=== PATIENT | male | born 1965 | race African-American/Black ===

== ENCOUNTER 2019-09-13 18:03 | Inpatient (IN) ==
[2019-09-13 21:07] LABS: Basophils % 0.2 % (0.0-0.8); Hematocrit 53.1 VOL% (42.0-52.0); Immature Granulocytes % 0.3 %; Immature Granulocytes Absolute 0.05 #; Lymphocytes # 1.6 10*3/uL (1.4-4.0); Lymphocytes % 11.1 % (21.2-54.2); Mean Corpuscular HGB Conc 33.9 GM/DL (32-36); Mean Corpuscular Volume 95.5 FL (87-102); Mean Platelet Volume 8.3 FL (9.6-12.0); Neutrophils % 78.4 % (38.7-73.9); Platelet Count 241 T/CUMM (130-400); Red Blood Count 5.56 MC/CUMM (3.8-5.5); Red Cell Distribution Width 12.6 % (9.3-17.3); White Blood Count 14.3 T/CUMM (4-12)
[2019-09-13] MEDS ORDERED: ACETAMINOPHEN 325 MG TABLET PO PRN (21:43)
[2019-09-13] MEDS ORDERED: ONDANSETRON 4 MG/2 ML VIAL IV PRN (21:43)
[2019-09-13] MEDS ORDERED: DOCUSATE SODIUM 100 MG CAPSULE PO PRN (21:43)
[2019-09-13] MEDS ORDERED: AZITHROMYCIN INJ 500 MG in SODIUM CHLORIDE 0.9% 250 ML IV SCH (22:00)
[2019-09-13 22:12] LABS: Alanine Aminotransferase 20 U/L (16-61); Albumin 3.6 G/DL (3.4-5.0); Alkaline Phosphatase 91 U/L (45-117); Aspartate Amino Transferase 21 U/L (0-37); Bilirubin,Total < 0.39 MG/DL (0.2-1.0); Blood Urea Nitrogen 77 MG/DL (7-18); Calcium 9.1 MG/DL (8.5-10.1); Estimated Glom Filtration Rate 6 ML/MIN; Glucose 97 MG/DL (74-106); Osmolality,Calculated 269.8 MOS/KG (273-304); Total Protein 8.2 G/DL (6.4-8.3)
[2019-09-13] MEDS ORDERED: NICOTINE 21 MG/24 HR PATCH TRANSDERM PRN (22:32)
[2019-09-13] MEDS ORDERED: LORazepam 2 MG/1 ML VIAL IV PRN ×2 (22:32)
[2019-09-13] MEDS: SODIUM CHLORIDE 0.9% 1,000 ML IV SCH (22:53)
[2019-09-13] MEDS: cefTRIAXone 1,000 MG in SYRINGE 1 EACH IV SCH (23:16)
[2019-09-13 23:46] LABS: Ferritin 510.8 ng/ml (26-388)
[2019-09-14 03:09] LABS: Calcium 8.4 MG/DL (8.5-10.1); Osmolality,Calculated 272.6 MOS/KG (273-304); Risk Ratio 2.7; Thyroid Stimulating Hormone 0.039 uIU/ml (0.358-3.74)
[2019-09-14] MEDS: SODIUM CHLORIDE 0.9% 1,000 ML IV SCH ×3 (05:16→17:50)
[2019-09-14 05:43] LABS: Basophils % 0.2 % (0.0-0.8); Eosinophils # 0.1 10*3/uL (0.0-0.87); Hematocrit 46.8 VOL% (42.0-52.0); Hemoglobin 16.2 GM/DL (14.0-18.0); Immature Granulocytes % 0.5 %; Immature Granulocytes Absolute 0.06 #; Lymphocytes # 1.4 10*3/uL (1.4-4.0); Lymphocytes % 11.1 % (21.2-54.2); Mean Corpuscular HGB Conc 34.6 GM/DL (32-36); Mean Corpuscular Volume 94.4 FL (87-102); Mean Platelet Volume 8.4 FL (9.6-12.0); Neutrophils % 76.2 % (38.7-73.9); Platelet Count 226 T/CUMM (130-400); Red Blood Count 4.96 MC/CUMM (3.8-5.5); Red Cell Distribution Width 12.4 % (9.3-17.3); White Blood Count 12.4 T/CUMM (4-12)
[2019-09-14 06:12] LABS: Platelet Estimate Adequate
[2019-09-14] MEDS ORDERED: ALUMINUM/MAGNES/SIMETH MAX STR 30 ML UDCUP PO PRN (14:12)
[2019-09-14] MEDS: HEPARIN 5,000 UNIT/1 ML VIAL SUBCUT SCH (16:32)
[2019-09-14] MEDS: cefTRIAXone 1,000 MG in SYRINGE 1 EACH IV SCH (21:25)
[2019-09-15] MEDS: SODIUM CHLORIDE 0.9% 1,000 ML IV SCH ×4 (00:39→22:40)
[2019-09-15] MEDS: HEPARIN 5,000 UNIT/1 ML VIAL SUBCUT SCH ×3 (00:40→16:23)
[2019-09-15 06:16] LABS: Basophils # 0.1 10*3/uL (0.0-0.2); Basophils % 0.5 % (0.0-0.8); Eosinophils % 0.1 % (0.00-10.9); Hematocrit 43.9 VOL% (42.0-52.0); Hemoglobin 14.4 GM/DL (14.0-18.0); Immature Granulocytes % 0.3 %; Immature Granulocytes Absolute 0.03 #; Lymphocytes # 1.7 10*3/uL (1.4-4.0); Lymphocytes % 18.2 % (21.2-54.2); Mean Corpuscular HGB Conc 32.8 GM/DL (32-36); Mean Corpuscular Volume 97.3 FL (87-102); Mean Platelet Volume 8.6 FL (9.6-12.0); Monocytes % 10.7 % (1.7-12.7); Neutrophils % 70.2 % (38.7-73.9); Platelet Count 211 T/CUMM (130-400); Red Blood Count 4.51 MC/CUMM (3.8-5.5); Red Cell Distribution Width 12.2 % (9.3-17.3); White Blood Count 9.2 T/CUMM (4-12)
[2019-09-15 06:39] LABS: Calcium 8.4 MG/DL (8.5-10.1); Osmolality,Calculated 280.2 MOS/KG (273-304)
[2019-09-15 06:49] LABS: Free T4 (Free Thyroxine) 1.85 NG/DL (0.76-1.46)
[2019-09-15] MEDS: PANTOPRAZOLE 40 MG TABLET PO SCH (09:13)
[2019-09-15] MEDS: CYPROHEPTADINE 4 MG TABLET PO SCH ×2 (14:43→20:54)
[2019-09-15] MEDS: cefTRIAXone 1,000 MG in SYRINGE 1 EACH IV SCH (20:54)
[2019-09-15] MEDS ORDERED: TAMSULOSIN 0.4 MG CAPSULE PO SCH (21:00)
[2019-09-16] MEDS: HEPARIN 5,000 UNIT/1 ML VIAL SUBCUT SCH ×3 (01:36→16:26)
[2019-09-16 04:16] LABS: Basophils # 0.1 10*3/uL (0.0-0.2); Basophils % 0.8 % (0.0-0.8); Eosinophils # 0.1 10*3/uL (0.0-0.87); Eosinophils % 1.2 % (0.00-10.9); Hematocrit 42.2 VOL% (42.0-52.0); Hemoglobin 13.8 GM/DL (14.0-18.0); Immature Granulocytes % 0.3 %; Immature Granulocytes Absolute 0.03 #; Lymphocytes # 2.9 10*3/uL (1.4-4.0); Lymphocytes % 30.8 % (21.2-54.2); Mean Corpuscular HGB Conc 32.7 GM/DL (32-36); Mean Corpuscular Volume 97.7 FL (87-102); Mean Platelet Volume 8.9 FL (9.6-12.0); Monocytes % 10.2 % (1.7-12.7); Neutrophils % 56.7 % (38.7-73.9); Platelet Count 198 T/CUMM (130-400); Red Blood Count 4.32 MC/CUMM (3.8-5.5); White Blood Count 9.3 T/CUMM (4-12)
[2019-09-16 04:27] LABS: Calcium 8.2 MG/DL (8.5-10.1); Osmolality,Calculated 276.7 MOS/KG (273-304)
[2019-09-16] MEDS: SODIUM CHLORIDE 0.9% 1,000 ML IV SCH (10:17)
[2019-09-16] MEDS: CYPROHEPTADINE 4 MG TABLET PO SCH ×2 (10:18→16:26)
[2019-09-16] MEDS: PANTOPRAZOLE 40 MG TABLET PO SCH (10:18)
[2019-09-16] MEDS ORDERED: LEVOFLOXACIN 500 MG TABLET PO SCH (15:30)
[2019-09-16 16:26] VITALS: BP 120/72
[2019-09-17] MEDS ORDERED: NICOTINE 21 MG/24 HR PATCH TRANSDERM SCH (09:00)
== END 2019-09-16 17:22 | disposition home or self-care (01) | DRG 683 ==
LOC: N.3E 19:28 → N.2E 21:40
PROVIDERS: ADMIT Internal Medicine; ATTEND Hospitalist